=== PATIENT | male | born 1955 | race Two or more races ===

== ENCOUNTER 2017-03-25 14:17 | Inpatient (IN) | payer OTHER ==
[~2017-03-25] VITALS: Ht 162.6 cm; Wt 63.5 kg
--- NOTE | 2017-03-25 14:20 | NUR ---
PATIENT BIB RA D/T SYNCOPAL EPISODE WHILE OUT WALKING. PATIENT DENIES LOSING CONSCIOUSNESS. A/OX 4. BREATHING EVEN AND UNLABORED ON ROOM AIR. NO SOB. SAFETY AND COMFORT MEASURES IN PLACE. AWAITING MD ORDERS.
[2017-03-25] MEDS ORDERED: IV NS 0.9% 1,000 ML ONE ×2 (14:27→15:33)
--- NOTE | 2017-03-25 14:39 | NUR ---
1L NS STARTED PER MD ORDER
--- NOTE | 2017-03-25 15:21 | NUR ---
PT HAS RAC #18 IV ACCESS. BLOOD SAMPLE COLLECTED SENT TO LAB
[2017-03-25 15:46] LABS: BASOPHILS # (AUTO) 0.1 /CMM (0.0-0.2); BASOPHILS % (AUTO) 1.6 % (0.0-2.0); EOSINOPHILS # (AUTO) 0.1 /CMM (0.0-0.7); EOSINOPHILS % (AUTO) 1.6 % (0.0-6.0); HEMATOCRIT 25 % (39-51); HEMOGLOBIN 8.6 g/dL (13.5-17.5); LYMPHOCYTES # (AUTO) 2.4 /CMM (0.8-4.8); LYMPHOCYTES % (AUTO) 29.6 % (20.0-44.0); MEAN CORPUSCULAR HEMOGLOBIN 32 PG (26.0-33.0); MEAN CORPUSCULAR HGB CONC 34 g/dl (31.0-36.0); MEAN CORPUSCULAR VOLUME 93 fL (80-96); MONOCYTES # (AUTO) 0.8 /CMM (0.1-1.30); MONOCYTES % (AUTO) 9.6 % (2.0-12.0); NEUTROPHILS # (AUTO) 4.6 /CMM (1.8-8.9); NEUTROPHILS % (AUTO) 57.6 % (43.0-81.0); PLATELET COUNT (AUTO) 188 /CMM (150-450); RDW COEFFICIENT OF VARIATION 11.4 (11.5-15.0)
[2017-03-25 15:55] LABS: INR 1.06 (0.87-1.13)
--- NOTE | 2017-03-25 15:58 | NUR ---
PT TAKEN TO CT SCAN VIA ELLEN
[2017-03-25] MEDS ORDERED: IV NS 0.9% 1,000 ML BAG IV ONE (16:00)
[2017-03-25 16:02] LABS: ALANINE AMINOTRANSFERASE 9 U/L (12-78); ALBUMIN 2.9 g/dL (3.4-5.0); ALKALINE PHOSPHATASE 54 U/L (46-116); ASPARTATE AMINOTRANSFERASE 21 U/L (15-37); BILIRUBIN,DIRECT 0.1 mg/dL (0.0-0.2); BILIRUBIN,TOTAL 0.3 mg/dL (0.2-1.0); CALCIUM, SERUM 7.6 mg/dL (8.5-10.1); CARBON DIOXIDE 16 mmol/L (21-32); CHLORIDE 114 mmol/L (98-107); CREATININE 3.1 mg/dL (0.6-1.3); GLUCOSE 107 mg/dL (74-106); POTASSIUM 4.1 mmol/L (3.5-5.1); SODIUM SERUM 147 mmol/L (136-145); TOTAL PROTEIN, SERUM 5.8 g/dL (6.4-8.2); UREA NITROGEN, BLOOD 33 mg/dL (7-18)
--- NOTE | 2017-03-25 16:03 | NUR ---
PT BACK FROM CT
[2017-03-25 16:11] LABS: TROPONIN I < 0.017 ng/mL (0.00-0.056)
[2017-03-25] MEDS ORDERED: ATOR40TA PO (17:23)
[2017-03-25] MEDS ORDERED: FURO20TA4 PO (17:23)
[2017-03-25] MEDS ORDERED: FINA5TAB3 PO (17:23)
[2017-03-25] MEDS ORDERED: TAMS0.4C34 PO (17:23)
[2017-03-25] MEDS ORDERED: NPH,100V SQ (17:23)
[2017-03-25] MEDS ORDERED: FERR-58 PO (17:23)
[2017-03-25] MEDS ORDERED: GABA-534 PO (17:23)
[2017-03-25] MEDS ORDERED: FAMO20TA8 PO (17:23)
[2017-03-25] MEDS ORDERED: CALC0.253 PO (17:23)
[2017-03-25] MEDS ORDERED: LISI-603 PO (17:23)
[2017-03-25] MEDS ORDERED: ASPI-991 PO (17:23)
[2017-03-25] MEDS ORDERED: INSU100V3 SQ (17:23)
[2017-03-25] MEDS ORDERED: BUPR-51 PO (17:25)
[2017-03-25] MEDS ORDERED: IV NS 0.9% 1,000 ML IV PRN (17:34)
--- NOTE | 2017-03-25 17:54 | NUR ---
REPORT GIVEN TO EMELYN HERNANDEZ. PATIENT TO BE ADMITTED TO [facility].
[2017-03-25] MEDS ORDERED: DEXTROSE 50%-WATER 50 ML DISP.SYRIN IV PRN ×2 (18:00)
[2017-03-25] MEDS ORDERED: ONDANSETRON HCL/PF 4 MG/2 ML VIAL IVP PRN (18:00)
[2017-03-25] MEDS ORDERED: HYDROCODONE/APAP 5/325MG 1 EACH TABLET PO PRN (18:00)
[2017-03-25] MEDS ORDERED: MAGNESIUM HYDROXIDE 30 ML UDC PO PRN (18:00)
[2017-03-25] MEDS ORDERED: MAG HYDROX/AL HYDROX/SIMETH 30 ML UDC PO PRN (18:00)
[2017-03-25] MEDS ORDERED: ACETAMINOPHEN 325 MG TABLET PO PRN (18:00)
[2017-03-25] MEDS ORDERED: ZOLPIDEM TARTRATE 5 MG TABLET PO PRN (18:00)
[2017-03-25] MEDS ORDERED: INSULIN REGULAR, HUMAN 100 UNIT/ML 3 ML VIAL SQ PRN (18:00)
[2017-03-25 18:45] VITALS: BP 139/52
--- NOTE | 2017-03-25 18:57 | NUR ---
SPONGE FISHERMAN NOTES PATIENT ARRIVED TO THE UNIT AT 1830, PATIENT IS AWAKE, SPEECH NOT CLEAR, [place] SPEAKING ONLY. V/S TAKEN AND RECORDED, BELONGINGS CHECKED BY THE MANUSCRIPT EDITOR WITNESSED BY RN. LEADS APPLIED FOR TELE MONITOR. SINUS RHYTHM HR 88. NO SOB, TOLERATING ROOM AIR. PLACE CALL LIGHT WITHIN REACH. BED LOW AND LOCKED. WILL ENDORSE TO POULTRY PATHOLOGIST RN FOR ADMISSION.
--- NOTE | 2017-03-25 19:30 | NUR ---
COPY COORDINATOR NOTE RECEIVED PATIENT FROM DAY SHIFT FOR , PATIENT WANTS TO LEAVE AMA SINCE HE LIVES BY HIMSELF AND HIS HOUSE IS UNLOCKED, AFRAID THAT SOMEONE'S GOING TO [place] HIS PLACE. NOTIFIED ONCALL DR LOPEZ, AND HE MADE AWARE. PATIENT SIGNED AMA FORM, EDUCATION AND RISKS EXPLAINED TO THE PATIENT, VERBALIZED UNDERSTANDING. REMOVED THE IV ACCESS AND ID BAND, CALLED THE TAXI SERVICE BY PATIENT'S OWN EXPENSES.
--- NOTE | 2017-03-25 20:40 | NUR ---
PATIENT LEFT THE HOSPITAL SAFELY ON A WHEELCHAIR ESCORTED BY MANAGER UNION.
[2017-03-25] MEDS ORDERED: TAMSULOSIN 0.4 MG CAP.SR.24H PO SCH (22:00)
[2017-03-25] MEDS ORDERED: BLOOD SUGAR DIAGNOSTIC 1 EACH STRIP IN SCH ×2 (22:00)
[2017-03-25] MEDS ORDERED: ATORVASTATIN 40 MG TABLET PO SCH (22:00)
[2017-03-26] MEDS ORDERED: PANTOPRAZOLE 40 MG TABLET.DR PO SCH (07:30)
[2017-03-26] MEDS ORDERED: FINASTERIDE (5 MG) 5 MG TABLET PO SCH (09:00)
[2017-03-26] MEDS ORDERED: FERROUS SULFATE (325 MG) 325 MG/TAB TABLET PO SCH (09:00)
[2017-03-26] MEDS ORDERED: BUPROPION XL 150 MG TAB.ER.24 PO SCH (09:00)
[2017-03-26] MEDS ORDERED: ASPIRIN EC 81 MG TABLET.DR PO SCH (09:00)
[2017-03-26] MEDS ORDERED: GABAPENTIN 300 MG CAPSULE PO SCH (09:00)
[2017-03-26] MEDS ORDERED: CALCITRIOL 0.25 MCG CAPSULE PO SCH (09:00)
== END 2017-03-25 20:40 | disposition left against medical advice (07) | DRG 683 ==
LOC: ER 14:19 → TELE 17:39
PROVIDERS: ADMIT Nurse Practitioner Acute Care; ATTEND Nurse Practitioner Acute Care
DX: N17.9 Acute kidney failure, unspecified (principal); I13.0 Hypertensive heart and chronic kidney disease with heart failure and stage 1 through stage 4 chronic kidney disease, or unspecified chronic kidney disease; E87.0 Hyperosmolality and hypernatremia; E86.0 Dehydration; R55 Syncope and collapse; D64.9 Anemia, unspecified; E11.9 Type 2 diabetes mellitus without complications; E78.5 Hyperlipidemia, unspecified; E88.09 Other disorders of plasma-protein metabolism, not elsewhere classified; G62.9 Polyneuropathy, unspecified; K21.9 Gastro-esophageal reflux disease without esophagitis; Z79.4 Long term (current) use of insulin; N40.0 Benign prostatic hyperplasia without lower urinary tract symptoms; I50.9 Heart failure, unspecified; I11.0 Hypertensive heart disease with heart failure; I95.9 Hypotension, unspecified; E11.22 Type 2 diabetes mellitus with diabetic chronic kidney disease; N18.9 Chronic kidney disease, unspecified; T46.4X5A Adverse effect of angiotensin-converting-enzyme inhibitors, initial encounter; Y92.009 Unspecified place in unspecified non-institutional (private) residence as the place of occurrence of the external cause
CPT/HCPCS: 36415; 70450-TC; 71010-TC; 80048-TC; 80076-TC; 82962-TC; 83935-TC; 84300-TC; 84484-TC; 85025-TC; 85730-TC; 87081-TC; A4606; J1815; J7030; Z7610

== ENCOUNTER 2017-06-21 19:51 | Inpatient (IN) | payer OTHER ==
[~2017-06-21] VITALS: Ht 152.4 cm; Wt 54.0 kg
[~2017-06-21 19:51] MED LIST: ASPI-991 PO; ATOR40TA PO; BUPR-51 PO; CALC0.253 PO; FAMO20TA8 PO; FERR-58 PO; FINA5TAB3 PO; FURO20TA4 PO; GABA-534 PO; INSU100V3 SQ; LISI-603 PO; NPH,100V SQ; TAMS0.4C34 PO
--- NOTE | 2017-06-21 19:55 | NUR ---
to bed 4 bib paramedics c/o glf. per ems pt was found down on the ground. received pt c/o R elbow pain, and L hip pain. noted old R elbow abrasion, old L side of forehead abrasion. noted pt with slurred speech. pt aaox4 no acute distress noted, resp even and unlabored. place pt on cardiac monitoring, continuous pox. pupils perrl, skin warm, nondiaphoretic. sl 18g to RAC water taxi captain.pending er md danielle.
[2017-06-21] MEDS ORDERED: IV NS 0.9% 1,000 ML BAG IV ONE (20:00)
--- NOTE | 2017-06-21 20:06 | NUR ---
blood drawn and sent to lab.
[2017-06-21 20:09] LABS: BASOPHILS # (AUTO) 0.1 /CMM (0.0-0.2); BASOPHILS % (AUTO) 0.6 % (0.0-2.0); EOSINOPHILS # (AUTO) 0.1 /CMM (0.0-0.7); EOSINOPHILS % (AUTO) 0.5 % (0.0-6.0); HEMATOCRIT 28 % (39-51); HEMOGLOBIN 9.6 g/dL (13.5-17.5); LYMPHOCYTES # (AUTO) 1.7 /CMM (0.8-4.8); LYMPHOCYTES % (AUTO) 16.6 % (20.0-44.0); MEAN CORPUSCULAR HEMOGLOBIN 32 PG (26.0-33.0); MEAN CORPUSCULAR HGB CONC 35 g/dl (31.0-36.0); MEAN CORPUSCULAR VOLUME 92 fL (80-96); MONOCYTES # (AUTO) 0.8 /CMM (0.1-1.30); MONOCYTES % (AUTO) 7.5 % (2.0-12.0); NEUTROPHILS # (AUTO) 7.4 /CMM (1.8-8.9); NEUTROPHILS % (AUTO) 74.8 % (43.0-81.0); PLATELET COUNT (AUTO) 195 /CMM (150-450); RDW COEFFICIENT OF VARIATION 11.6 (11.5-15.0); WHITE BLOOD COUNT (AUTO) 10.1 K/uL (4.3-11.0)
--- NOTE | 2017-06-21 20:26 | NUR ---
pt transported to radiology for ct head.
[2017-06-21 20:27] LABS: INR 0.9 (0.87-1.13); PROTHROMBIN TIME 9.4 SECS (9.5-12.7)
[2017-06-21 20:31] LABS: ALBUMIN 3.5 g/dL (3.4-5.0); BILIRUBIN,DIRECT 0.1 mg/dL (0.0-0.2); BILIRUBIN,TOTAL 0.4 mg/dL (0.2-1.0); CREATININE 3.1 mg/dL (0.6-1.3); POTASSIUM 4.8 mmol/L (3.5-5.1); TOTAL PROTEIN, SERUM 6.9 g/dL (6.4-8.2); TROPONIN I 0.042 ng/mL (0.00-0.056)
--- NOTE | 2017-06-21 21:21 | NUR ---
urine sample collected and sent to lab.
[2017-06-21 21:28] LABS: APPEARANCE,URINE Clear (CLEAR); BILIRUBIN,URINE Negative (NEGATIVE); BLOOD, URINE Trace-lysed Ery/uL (NEGATIVE); COLOR,URINE Yellow (YELLOW); KETONES,URINE Trace (NEGATIVE); LEUKOCYTE ESTERASE ,URINE Negative (NEGATIVE); NITRITE, URINE Negative (NEGATIVE); PH,URINE 5.5 (5.0-8.0); PROTEIN,URINE Trace mg/dl (NEGATIVE); UGLUCOSE 500 MG/DL mg/dL (NEGATIVE); UROBILINOGEN,URINE 0.2 EU/dL (0.2)
[2017-06-21 21:36] LABS: BACTERIA,URINE None seen /HPF (None Seen); SQUAMOUS EPITHELIAL CELL,UR Few /HPF (None Seen); WBC,URINE 0-2 /HPF (0-3)
[2017-06-21] MEDS ORDERED: INSULIN ASPART HUMALOG/NOVOLOG 100 UNIT/ML CARTRIDGE SQ STA (21:41)
[2017-06-21] MEDS ORDERED: INSULIN REGULAR, HUMAN 100 UNIT/ML 10 ML VIAL ONE (22:04)
--- NOTE | 2017-06-21 22:08 | NUR ---
Regular insulin, 10 units sq verified with Ed SCRUMMASTER
--- NOTE | 2017-06-21 22:13 | NUR ---
er spoke to jeff smith regarding pt admission.
--- NOTE | 2017-06-21 22:26 | NUR ---
report called to telegraph inspectorjannette guaman. will transport pt via acls protocol.
--- NOTE | 2017-06-21 22:35 | NUR ---
MS/RN NOTES RECEIVED NEW ADMITTED PATIENT FROM ER ON A GURNEY 62 YO MALE WITH DIFFICULTY SPEAKING BUT CAN FOLLOW SIMPLE COMMAND WITH A NOD. ALERT, ORIENTED X2, REPORTED FALL BY FRIEND AT HOME .WEAKNESS ON ALL EXTREMITY, NEED ASSISTANCE DUE TO WEAKNESS. RESPIRATIONS EVEN AND UNLABORED, BS LEVEL UPON ADMISSION TO ER AT 523 AND GIVEN SLIDING SCALE PROTOCOL., VITAL SIGNS CHECK AND OBSERVED ABRASION ON ELBOW, FOREHEAD AND KNEE.SKIN INTACT. PATIENT ASPIRATION AND FALL PRECAUTION. MD SEEN AND ASSESS THE PATIENT. MEDS RECONCILED. BELONGINGS CHECK. ORDERS TO CARRYOUT. ROOM ORIENTATION DONE AND SKIN CHECK. PATIENT UNABLE TO UNDERSTAND DUE TO DIFFICULTY SPEAKING/UNCLEAR, PREVIOUS RECORD COLLECTED.
[2017-06-21 22:39] VITALS: BP_SYST 129; BP_SYST 141; BP_DIAS 74; BP_DIAS 75
[2017-06-21] MEDS ORDERED: IV NS 0.9% 1,000 ML IV PRN (23:07)
[2017-06-21] MEDS ORDERED: ACETAMINOPHEN 325 MG TABLET PO PRN (23:30)
[2017-06-21] MEDS ORDERED: MAG HYDROX/AL HYDROX/SIMETH 30 ML UDC PO PRN (23:30)
[2017-06-21] MEDS ORDERED: ONDANSETRON HCL/PF 4 MG/2 ML VIAL IVP PRN (23:30)
[2017-06-21] MEDS ORDERED: MAGNESIUM HYDROXIDE 30 ML UDC PO PRN (23:30)
[2017-06-21 23:32] VITALS: BP 129/74
[2017-06-22] VITALS: BP 122/64
[2017-06-22 04:00] VITALS: BP 128/66
[2017-06-22] MEDS: BLOOD SUGAR DIAGNOSTIC 1 EACH STRIP VI SCH ×4 (06:11→21:57)
--- NOTE | 2017-06-22 06:26 | NUR ---
MS/RN NOTES RADIOLOGY CONTACTED REGARDING ORDER BY MD FOR MRI OF BRAIN W/O CONTRAST AND PER JOYCE WILL BE DONE ON SATURDAY TOGETHER W/ ULTRASOUND OF KIDNEY.
--- NOTE | 2017-06-22 06:42 | NUR ---
PATIENT IN FLOR, ALERTX2. DIFFICULTY TALKING BUT CAN RESPOND WITH NOD, ALERT, ORIENTED X2. WILL CONTINUE MONITORING AND ENDORSE TO AM RN.
--- NOTE | 2017-06-22 07:40 | NUR ---
received pt. this am and seems alert,but speech slurred,coughs with meds so crushed.
--- NOTE | 2017-06-22 07:46 | NUR ---
TEXTED DR. BROOKS FOR MRI APPROVAL.
[2017-06-22 07:56] LABS: BASOPHILS % (AUTO) 0.4 % (0.0-2.0); EOSINOPHILS # (AUTO) 0.1 /CMM (0.0-0.7); EOSINOPHILS % (AUTO) 1.3 % (0.0-6.0); HEMATOCRIT 28 % (39-51); HEMOGLOBIN 9.4 g/dL (13.5-17.5); LYMPHOCYTES # (AUTO) 2.7 /CMM (0.8-4.8); LYMPHOCYTES % (AUTO) 23.7 % (20.0-44.0); MEAN CORPUSCULAR HEMOGLOBIN 31 PG (26.0-33.0); MEAN CORPUSCULAR HGB CONC 34 g/dl (31.0-36.0); MEAN CORPUSCULAR VOLUME 94 fL (80-96); MONOCYTES # (AUTO) 1.1 /CMM (0.1-1.30); MONOCYTES % (AUTO) 9.9 % (2.0-12.0); NEUTROPHILS # (AUTO) 7.3 /CMM (1.8-8.9); NEUTROPHILS % (AUTO) 64.7 % (43.0-81.0); PLATELET COUNT (AUTO) 203 /CMM (150-450); RED BLOOD CELL COUNT(AUTO) 2.99 MIL/uL (4.5-6.0); WHITE BLOOD COUNT (AUTO) 11.2 K/uL (4.3-11.0)
[2017-06-22 08:00] VITALS: BP 121/66
[2017-06-22 08:12] LABS: ALBUMIN 3.4 g/dL (3.4-5.0); BILIRUBIN,TOTAL 0.4 mg/dL (0.2-1.0); CALCIUM, SERUM 8.7 mg/dL (8.5-10.1); MAGNESIUM 1.8 mg/dL (1.8-2.4); PHOSPHORUS 3.7 mg/dL (2.5-4.9); POTASSIUM 3.8 mmol/L (3.5-5.1); TOTAL PROTEIN, SERUM 6.9 g/dL (6.4-8.2); TROPONIN I 0.027 ng/mL (0.00-0.056)
[2017-06-22 08:29] LABS: CREATININE 2.5 mg/dL (0.6-1.3); THYROID STIMULATING HORMONE 3.421 uIU/mL (0.358-3.74)
--- NOTE | 2017-06-22 09:01 | NUR ---
MRI ON HOLD FOR NOW ,DR. BROOKS WILL LET US KNOW.
[2017-06-22] MEDS: FERROUS SULFATE (325 MG) 325 MG/TAB TABLET PO SCH (09:29)
[2017-06-22] MEDS: FINASTERIDE (5 MG) 5 MG TABLET PO SCH (09:29)
[2017-06-22] MEDS: BUPROPION XL 150 MG TAB.ER.24 PO SCH (09:29)
[2017-06-22] MEDS: GABAPENTIN 300 MG CAPSULE PO SCH (09:29)
[2017-06-22] MEDS: CALCITRIOL 0.25 MCG CAPSULE PO SCH (09:29)
[2017-06-22] MEDS: FAMOTIDINE (20 MG) 20 MG TABLET PO SCH ×2 (09:29→18:12)
[2017-06-22] MEDS: ASPIRIN EC 81 MG TABLET.DR PO SCH (09:30)
--- NOTE | 2017-06-22 10:30 | NUR ---
seems to be getting oob without help,so instructed in latvian needs supervision.
[2017-06-22 12:00] VITALS: BP 135/79
[2017-06-22] MEDS: INSULIN REGULAR, HUMAN 100 UNIT/ML 3 ML VIAL SQ PRN (12:04)
--- NOTE | 2017-06-22 12:11 | NUR ---
BGL CHECKED AND 475,RECHECK DONE AND 498-GIVEN 15 UNITS REG. INSULIN ORDERED-SPOKE WITH ASSIGNED CATEGORY MANAGER COURTNEY GIBBONS AND MADE AWARE OF GLUCOSE LEVELS-STATES HE WILL FOLLOW UP.
--- NOTE | 2017-06-22 13:00 | NUR ---
iv disconnected due to hx chf.
--- NOTE | 2017-06-22 14:00 | NUR ---
yohana proctor specialty transformer assembler in to see pt.
[2017-06-22 16:00] VITALS: BP 114/68
--- NOTE | 2017-06-22 16:30 | NUR ---
caro now in with pt.for better supervision.
[2017-06-22] MEDS: ATORVASTATIN 40 MG TABLET PO SCH (21:57)
[2017-06-22] MEDS: TAMSULOSIN 0.4 MG CAP.SR.24H PO SCH (21:57)
[2017-06-22] MEDS: *INSULIN REGULAR(HUMULIN R)HUM 100 UNIT/ML VIAL SQ PRN (22:08)
[2017-06-23] MEDS: HYDROCODONE/APAP 5/325MG 1 EACH TABLET PO PRN (02:17)
[2017-06-23] MEDS: BLOOD SUGAR DIAGNOSTIC 1 EACH STRIP VI SCH ×4 (05:55→21:23)
[2017-06-23] MEDS: INSULIN REGULAR, HUMAN 100 UNIT/ML 3 ML VIAL SQ PRN (05:55)
--- NOTE | 2017-06-23 06:48 | NUR ---
MS RN NOTES AWAKE & RESPONSIVE. NOT IN ANY DISTRESS. NO SOB NOTED. DENIES ANY PAIN OR DISCOMFORT AT THIS TIME. WITH IVF INFUSING WELL. AM CARE DONE. MONITORED ACCORDINGLY. CALL LIGHT WITHIN REACH. BED IN LOWEST POSITION. SITTER AT BEDSIDE. SR UP X3 WITH BED ALARM ON FOR SAFETY. WILL ENDORSE TO NEXT SHIFT.
--- NOTE | 2017-06-23 07:53 | NUR ---
RN NOTES RECEIVED PT. PT IS A/OX2 AND RESTING IN BED. NO S/S OF DISTRESS OR SOB. NO C/O PAIN AT THIS TIME. PT HAS A SITTER AT BEDSIDE. IV ACCESS LOCATED ON RIGHT AC, 18G RUNNING NS AT 75 ML/HR. SAFETY MEASURES IN PLACE, CALL LIGHT WITHIN REACH. WILL ENDORSE TO REGULATORY LEADER FOR PATRICE.
[2017-06-23] MEDS: GABAPENTIN 300 MG CAPSULE PO SCH (08:31)
[2017-06-23] MEDS: FERROUS SULFATE (325 MG) 325 MG/TAB TABLET PO SCH (08:31)
[2017-06-23] MEDS: FINASTERIDE (5 MG) 5 MG TABLET PO SCH (08:31)
[2017-06-23] MEDS: ASPIRIN EC 81 MG TABLET.DR PO SCH (08:31)
[2017-06-23] MEDS: BUPROPION XL 150 MG TAB.ER.24 PO SCH (08:31)
[2017-06-23] MEDS: FAMOTIDINE (20 MG) 20 MG TABLET PO SCH ×2 (08:31→17:11)
[2017-06-23] MEDS: CALCITRIOL 0.25 MCG CAPSULE PO SCH (08:31)
[2017-06-23] MEDS: *INSULIN REGULAR(HUMULIN R)HUM 100 UNIT/ML VIAL SQ PRN ×2 (12:24→21:31)
[2017-06-23 16:37] VITALS: BP 154/84
[2017-06-23] MEDS: IV NS 0.9% 1,000 ML IV PRN (18:36)
--- NOTE | 2017-06-23 18:49 | NUR ---
RN CLOSING NOTES PT IS IN BED RESTING. A/OX2. NO S/S OF DISTRESS OR SOB. NO C/O PAIN AT THIS TIME. ALL PT NEEDS ANTICIPATED AND MET. SAFETY MEASURES IN PLACE, CALL LIGHT WITHIN REACH. WILL ENDORSE TO HOSPICE CONSULTANT FOR PATRICE.
[2017-06-23 20:00] VITALS: BP_SYST 131; BP_SYST 147; BP_DIAS 75; BP_DIAS 82
[2017-06-23] MEDS: TAMSULOSIN 0.4 MG CAP.SR.24H PO SCH (21:21)
[2017-06-23] MEDS: ATORVASTATIN 40 MG TABLET PO SCH (21:21)
[2017-06-23] MEDS ORDERED: INSULIN DETEMIR 100 UNIT/ML CARTRIDGE SQ SCH (22:00)
[2017-06-24 05:00] VITALS: BP 136/78
--- NOTE | 2017-06-24 06:00 | NUR ---
pt continue with sitter for safety, pt alert oriented x2, remains in bed overnight, out of bed to toilet only, quite and calm overnight, not sleeping well per pt due to roommate so confused and not sleeping iv site replaced, due to leaking. continue with iv fluids, vss,afebrile.
[2017-06-24] MEDS: DEXTROSE 50%-WATER 50 ML DISP.SYRIN IV PRN ×2 (07:06→16:57)
[2017-06-24] MEDS: BLOOD SUGAR DIAGNOSTIC 1 EACH STRIP VI SCH ×4 (07:06→21:56)
[2017-06-24 07:12] LABS: BASOPHILS % (AUTO) 0.5 % (0.0-2.0); EOSINOPHILS # (AUTO) 0.3 /CMM (0.0-0.7); EOSINOPHILS % (AUTO) 3.2 % (0.0-6.0); HEMATOCRIT 29 % (39-51); HEMOGLOBIN 9.9 g/dL (13.5-17.5); LYMPHOCYTES # (AUTO) 2.6 /CMM (0.8-4.8); LYMPHOCYTES % (AUTO) 32.5 % (20.0-44.0); MEAN CORPUSCULAR HEMOGLOBIN 32 PG (26.0-33.0); MEAN CORPUSCULAR HGB CONC 34 g/dl (31.0-36.0); MEAN CORPUSCULAR VOLUME 93 fL (80-96); MONOCYTES # (AUTO) 0.8 /CMM (0.1-1.30); MONOCYTES % (AUTO) 10.5 % (2.0-12.0); NEUTROPHILS # (AUTO) 4.2 /CMM (1.8-8.9); NEUTROPHILS % (AUTO) 53.3 % (43.0-81.0); PLATELET COUNT (AUTO) 227 /CMM (150-450); RDW COEFFICIENT OF VARIATION 12.5 (11.5-15.0); WHITE BLOOD COUNT (AUTO) 7.9 K/uL (4.3-11.0)
--- NOTE | 2017-06-24 07:20 | NUR ---
fingerstick 45mg/dl, 40mg/dl given D50% per protocol, pt awake alert. no s/sx of hypoglycemia,rechecked resulted 229 mg/dl.
--- NOTE | 2017-06-24 07:30 | NUR ---
RN MS NOTES PT IN BED, AWAKE, ALERT AND ORIENTED, NOT IN PAIN OR DISTRESS, CALL LIGHT WITHIN REACH, ASSISTED WITH BREAKFAST, KEPT COMFORTABLE.
[2017-06-24 07:39] LABS: CALCIUM, SERUM 8.3 mg/dL (8.5-10.1); CREATININE 1.8 mg/dL (0.6-1.3); POTASSIUM 3.9 mmol/L (3.5-5.1)
[2017-06-24 08:00] VITALS: BP 130/71
[2017-06-24] MEDS: ASPIRIN EC 81 MG TABLET.DR PO SCH (08:52)
[2017-06-24] MEDS: CALCITRIOL 0.25 MCG CAPSULE PO SCH (08:52)
[2017-06-24] MEDS: FERROUS SULFATE (325 MG) 325 MG/TAB TABLET PO SCH (08:52)
[2017-06-24] MEDS: FINASTERIDE (5 MG) 5 MG TABLET PO SCH (08:52)
[2017-06-24] MEDS: BUPROPION XL 150 MG TAB.ER.24 PO SCH (08:52)
[2017-06-24] MEDS: GABAPENTIN 300 MG CAPSULE PO SCH (08:52)
[2017-06-24] MEDS: FAMOTIDINE (20 MG) 20 MG TABLET PO SCH ×2 (08:55→16:46)
[2017-06-24] MEDS: INSULIN REGULAR, HUMAN 100 UNIT/ML 3 ML VIAL SQ PRN (11:44)
--- NOTE | 2017-06-24 13:00 | NUR ---
RN MS NOTES PT IN BED, AWAKE, ALERT AND ORIENTED, EATING LUNCH, PT SEEN BY SPEECH THERAPIST, CURRENT DIET CHANGED TO [facility] SOFT WITH NECTAR THICK LIQUIDS, PT TOLERATING WELL, SITTER AT BEDSIDE, IV FLUIDS INFUSING WELL, NEEDS ATTENDED.
[2017-06-24 16:00] VITALS: BP 128/73
[2017-06-24] MEDS: IV NS 0.9% 1,000 ML IV PRN (17:31)
--- NOTE | 2017-06-24 18:18 | NUR ---
RN MS NOTES PT IN BED, AWAKE, ALERT AND ORIENTED, NO CHANGE IN LOC NOTED, BLOOD SUGAR CHECKED - 49, REPEAT - 46, D50/50ML GIVEN PER PROTOCOL, RECHECKED AFTER 15 MIN, BLOOD SUGAR 205, PT WITH GOOD PO INTAKE, IV FLUIDS INFUSING WELL, CALL LIGHT WITHIN REACH, SITTER AT BEDSIDE, PM CARE DONE.
[2017-06-24] MEDS: ATORVASTATIN 40 MG TABLET PO SCH ×2 (21:22→21:43)
[2017-06-24] MEDS: TAMSULOSIN 0.4 MG CAP.SR.24H PO SCH (21:43)
[2017-06-24] MEDS: *INSULIN REGULAR(HUMULIN R)HUM 100 UNIT/ML VIAL SQ PRN (21:44)
[2017-06-24 22:00] VITALS: BP 153/83
[2017-06-24] MEDS ORDERED: INSULIN DETEMIR 100 UNIT/ML CARTRIDGE SQ SCH (22:00)
[2017-06-25] MEDS: IV NS 0.9% 1,000 ML IV PRN (06:52)
[2017-06-25] MEDS: BLOOD SUGAR DIAGNOSTIC 1 EACH STRIP VI SCH ×4 (06:57→21:44)
--- NOTE | 2017-06-25 06:57 | NUR ---
END OF SHIFT SUMMERY: patient is A&O X 3. on room , saturating well. denies pain. no episodes of N/V throughout the shift. still on IV NS 0.9% @ 75 ml /hr. on ACHS accu-check, the latest blood sugar reading is 58 apple juice and apple sauce given to the patient,random glucose is ordered per protocol, rechecked after 20 min and found 76. no acute respiratory/cardiac distress noted. will continue to monitor and endorse patient to AM shift nurse to continue the care.
--- NOTE | 2017-06-25 07:40 | NUR ---
MS RN OPENING NOTE PATIENT IS ALERT AND ORIENTED x2. ABLE TO COMMUNICATE NEEDS. NO PAIN AT THIS TIME. NO SOB OR DISTRESS NOTED. ON ROOM AIR O2 SAT AT 97%. CALL LIGHT WITHIN REACH. SAFETY MEASURES IMPLEMENTED. BLOOD SUGAR TO BE MONITORED. IV ON RIGHT FOREARM INTACT AND PATENT NO REDNESS OR SWELLING NOTED. OV FLUIDS RUNNING AT 75 ML/HR, TOLERATING WELL. POSSIBLE DISCHARGE TODAY WILL CONTINUE TO MONITOR
[2017-06-25 08:00] VITALS: BP 138/69
[2017-06-25] MEDS: FAMOTIDINE (20 MG) 20 MG TABLET PO SCH ×2 (08:46→16:56)
[2017-06-25] MEDS: FERROUS SULFATE (325 MG) 325 MG/TAB TABLET PO SCH (08:46)
[2017-06-25] MEDS: BUPROPION XL 150 MG TAB.ER.24 PO SCH (08:46)
[2017-06-25] MEDS: FINASTERIDE (5 MG) 5 MG TABLET PO SCH (08:46)
[2017-06-25] MEDS: ASPIRIN EC 81 MG TABLET.DR PO SCH (08:46)
[2017-06-25] MEDS: GABAPENTIN 300 MG CAPSULE PO SCH (08:46)
[2017-06-25] MEDS: CALCITRIOL 0.25 MCG CAPSULE PO SCH (08:46)
[2017-06-25] MEDS: INSULIN NPH, HUMAN ISOPHANE 100 UNIT/ML CARTRIDGE SQ SCH (11:30)
[2017-06-25] MEDS: INSULIN REGULAR, HUMAN 100 UNIT/ML 3 ML VIAL SQ PRN (11:58)
--- NOTE | 2017-06-25 18:25 | NUR ---
MS RN CLOSING NOTE PATIENT IS ALERT AND ORIENTED x4. ALL DUE MEDICATIONS GIVEN ORDERED. CALL LIGHT WITHIN REACH AT ALL TIMES. SAFETY MEASURES IMPLEMENTED. ABLE TO COMMUNICATE NEEDS. IV INTACT AND PATENT, IV FLUIDS RUNNING AT 75 ML/HR TOLERATING WELL. NO PAIN AT THIS TIME. NO SOB OR DISTRESS NOTED. BLOOD SUGAR MONITORING THROUGHOUT SHIFT GAVE INSULIN NEEDED. WILL ENDORSE TO STEERER NURSE FOR PATRICE
--- NOTE | 2017-06-25 19:30 | NUR ---
RN NOTES Received patient awake on bed, oriented to person, no complaints of pain, not in any distress, assisted to bathroom, noted to have unsteady gait, fall and safety precautions observed, instructed to call for assist, bed locked and low, bed alarm on, call light p[laced within reach. instructed to always call fro assist.
[2017-06-25 20:00] VITALS: BP 151/78
[2017-06-25] MEDS: Z GUARD REMEDY 2 OZ OINT TP PRN (21:37)
[2017-06-25] MEDS: TAMSULOSIN 0.4 MG CAP.SR.24H PO SCH (21:37)
[2017-06-25] MEDS: ATORVASTATIN 40 MG TABLET PO SCH (21:37)
[2017-06-25] MEDS: *INSULIN REGULAR(HUMULIN R)HUM 100 UNIT/ML VIAL SQ PRN (21:48)
[2017-06-26] MEDS: BLOOD SUGAR DIAGNOSTIC 1 EACH STRIP VI SCH ×2 (06:58→12:21)
[2017-06-26 07:01] LABS: BASOPHILS # (AUTO) 0.1 /CMM (0.0-0.2); BASOPHILS % (AUTO) 0.7 % (0.0-2.0); EOSINOPHILS # (AUTO) 0.2 /CMM (0.0-0.7); EOSINOPHILS % (AUTO) 2.6 % (0.0-6.0); HEMATOCRIT 28 % (39-51); HEMOGLOBIN 9.6 g/dL (13.5-17.5); LYMPHOCYTES # (AUTO) 2.5 /CMM (0.8-4.8); LYMPHOCYTES % (AUTO) 29.8 % (20.0-44.0); MEAN CORPUSCULAR HEMOGLOBIN 32 PG (26.0-33.0); MEAN CORPUSCULAR HGB CONC 35 g/dl (31.0-36.0); MEAN CORPUSCULAR VOLUME 92 fL (80-96); MONOCYTES # (AUTO) 0.7 /CMM (0.1-1.30); MONOCYTES % (AUTO) 8.4 % (2.0-12.0); NEUTROPHILS # (AUTO) 4.9 /CMM (1.8-8.9); NEUTROPHILS % (AUTO) 58.5 % (43.0-81.0); PLATELET COUNT (AUTO) 227 /CMM (150-450); RDW COEFFICIENT OF VARIATION 12.5 (11.5-15.0); RED BLOOD CELL COUNT(AUTO) 3.01 MIL/uL (4.5-6.0); WHITE BLOOD COUNT (AUTO) 8.4 K/uL (4.3-11.0)
[2017-06-26] MEDS: INSULIN REGULAR, HUMAN 100 UNIT/ML 3 ML VIAL SQ PRN ×2 (07:01→12:28)
[2017-06-26 07:25] LABS: CALCIUM, SERUM 8.3 mg/dL (8.5-10.1); CREATININE 1.7 mg/dL (0.6-1.3); MAGNESIUM 1.3 mg/dL (1.8-2.4); PHOSPHORUS 3.2 mg/dL (2.5-4.9); POTASSIUM 4.3 mmol/L (3.5-5.1)
--- NOTE | 2017-06-26 07:46 | NUR ---
MS RN OPENING NOTE SBAR REPORT RECEIVED AT THE BEDSIDE. PATIENT IS A/O X2, FORGETFUL, CONFUSED AT TIMES. PATIENT IS RESTING IN BED AWAKE, WATCHING TV. BED IS LOCKED, AT THE LOWEST POSITION, SIDE RAILS UP X 2, BED ALARM ON, SITTER AT THE BEDSIDE. PATIENT IN TAN'S POSITION. PRESENTS WITH EVEN, UNLABORED BREATHING.SPO2 98% RA. DENIES PAIN/DISCOMFORT AT THIS TIME. WILL CONTINUE TO ASSESS/MONITOR THROUGHOUT THE SHIFT.
[2017-06-26 08:00] VITALS: BP_SYST 110; BP_SYST 131; BP_DIAS 40; BP_DIAS 88
[2017-06-26] MEDS: INSULIN NPH, HUMAN ISOPHANE 100 UNIT/ML CARTRIDGE SQ SCH (08:49)
[2017-06-26] MEDS: Z GUARD REMEDY 2 OZ OINT TP PRN (08:49)
[2017-06-26] MEDS: CALCITRIOL 0.25 MCG CAPSULE PO SCH (08:50)
[2017-06-26] MEDS: GABAPENTIN 300 MG CAPSULE PO SCH (08:50)
[2017-06-26] MEDS: HYDROCODONE/APAP 5/325MG 1 EACH TABLET PO PRN (08:50)
[2017-06-26] MEDS: FAMOTIDINE (20 MG) 20 MG TABLET PO SCH (08:50)
[2017-06-26] MEDS: FINASTERIDE (5 MG) 5 MG TABLET PO SCH (08:51)
[2017-06-26] MEDS: BUPROPION XL 150 MG TAB.ER.24 PO SCH (08:51)
[2017-06-26] MEDS: ASPIRIN EC 81 MG TABLET.DR PO SCH (08:51)
[2017-06-26] MEDS: FERROUS SULFATE (325 MG) 325 MG/TAB TABLET PO SCH (08:51)
[2017-06-26] MEDS ORDERED: Magnesium 1GM/D5W 100ML PREMIX 100 ML IV ONE (09:00)
--- NOTE | 2017-06-26 16:00 | NUR ---
MS RN NOTE PER COURTNEY THE DISCHARGING ELECTRICAL CONTROLS DESIGNER PATIENT'S INSURANCE DID NOT APPROVE FOR SNF/REHAB PLACEMENT. PATIENT WILL BE SENT HOME WITH HOME HEALTH SERVICES.
--- NOTE | 2017-06-26 16:55 | NUR ---
MS AD OPERATIONS ASSOCIATE NOTE PATIENT IS LEAVING THE UNIT VIA A [place] ACCOMPANIED BY A WORKERS COMPENSATION CLAIMS EXAMINER. IV LINE IS REMOVED WITH THE CATHETER INTACT. OCCLUSIVE DRESSING APPLIED. VS WNL. PATIENT IS STABLE.
== END 2017-06-26 16:56 | disposition home health service (06) | DRG 73 ==
LOC: ER 19:52 → TELE 22:25 → MED 06-22 17:09
PROVIDERS: ADMIT Nurse Practitioner Acute Care; ATTEND Nurse Practitioner Acute Care
DX: G90.8 Other disorders of autonomic nervous system (principal); N17.0 Acute kidney failure with tubular necrosis; I13.0 Hypertensive heart and chronic kidney disease with heart failure and stage 1 through stage 4 chronic kidney disease, or unspecified chronic kidney disease; E87.1 Hypo-osmolality and hyponatremia; N18.4 Chronic kidney disease, stage 4 (severe); E11.22 Type 2 diabetes mellitus with diabetic chronic kidney disease; I50.9 Heart failure, unspecified; E11.65 Type 2 diabetes mellitus with hyperglycemia; E86.0 Dehydration; D63.8 Anemia in other chronic diseases classified elsewhere; K21.9 Gastro-esophageal reflux disease without esophagitis; N40.0 Benign prostatic hyperplasia without lower urinary tract symptoms; R53.1 Weakness; D72.829 Elevated white blood cell count, unspecified; N28.1 Cyst of kidney, acquired; E83.9 Disorder of mineral metabolism, unspecified; Z79.4 Long term (current) use of insulin; Z91.81 History of falling
CPT/HCPCS: 36415; 70450-TC; 70551-TC; 71010-TC; 72170-TC; 76770-TC; 80048-TC; 80053-TC; 80061-TC; 80076-TC; 81000-TC; 82945-TC; 82962-TC; 83735-TC; 83880; 84100-TC; 84443-TC; 84484-TC; 85025-TC; 85730-TC; 87081-TC; 92526; 92611-TC; 93307-TC; 93880-TC; 97116-TC; 97530-TC; A4606; G0480; J1815; J3475; J7030; Z7610